=== PATIENT | female | born 2000 | race Two or more races ===

== ENCOUNTER 2023-08-01 12:58 | Outpatient (CLI) | payer OTHER | END 2023-08-01 14:07 | disposition home or self-care (01) | LOC: PRENATAL 12:58 | PROVIDERS: ATTEND Obstetrics & Gynecology Maternal & Fetal Medicine | DX: O35.3XX0 Maternal care for (suspected) damage to fetus from viral disease in mother, not applicable or unspecified (principal); O44.00 Complete placenta previa NOS or without hemorrhage, unspecified trimester; Z3A.20 20 weeks gestation of pregnancy ==

== ENCOUNTER 2023-10-23 09:00 | Outpatient (CLI) | payer OTHER | END 2023-10-23 09:01 | disposition home or self-care (01) | LOC: PRENATAL 09:00 | PROVIDERS: ATTEND Obstetrics & Gynecology Maternal & Fetal Medicine | DX: O26.849 Uterine size-date discrepancy, unspecified trimester (principal); O36.8199 Decreased fetal movements, unspecified trimester, other fetus; Z3A.32 32 weeks gestation of pregnancy ==

== ENCOUNTER 2023-11-28 17:05 | Inpatient (IN) | payer OTHER ==
[~2023-11-28] VITALS: Ht 157.5 cm; Wt 3.2 kg
[2023-11-28] MEDS ORDERED: PRENATAL TABLE1 EAC1 PO (17:56)
[2023-11-28 18:06] LABS: PH,URINE 7.5 (5.0-8.0); URINE APPEARANCE Clear; URINE BILIRRUBIN Negative (NEGATIVE); URINE BLOOD Negative; URINE COLOR Yellow; URINE GLUCOSE Negative (NEGATIVE); URINE LEUKOCYTE Trace; URINE NITRATE Negative; URINE PROTEIN Negative (NEGATIVE); URINE UROBILINOGEN 0.2 E.U./dl
[2023-11-28 18:10] LABS: HEMATOCRIT 35.1 % (36.0-45.00); MEAN CELL VOLUME 80.8 fL (80.00-100.00); MEAN CORPUSCULAR HEMOGLOBIN 27.6 pg (27.00-32.0); MEAN CORPUSCULAR HGB CONC 34.1 g/dl (32.0-36.0); PLATELET COUNT 257 K/uL (150-450); RED BLOOD COUNT 4.35 M/uL (4.00-6.00); URINE BACTERIA 3039.9 uL (0.0-1933); URINE EPITHELIAL CELLS 16.3 uL (0.0-38.8); URINE RBC 9.7 uL (0.0-20.8); URINE WBC 38.8 uL (0.0-23.2)
[2023-11-28 18:19] LABS: INR 0.98; PARTIAL THROMBOPLASTIN TIME 26.5 SECONDS (22.0-34.0); PROTHROMBIN TIME 10.3 SECONDS (9.0-11.5)
[2023-11-28 18:23] LABS: ALBUMIN 2.7 gm/dL (3.4-5.0); BILIRUBIN TOTAL 0.43 mg/dL (0.3-1.2); CALCIUM 8.5 mg/dL (8.5-10.1); CREATININE SERUM 0.48 mg/dL (0.55-1.02); GFR 158.89; GLOBULINA 3.5 G/DL (2.4-3.5); POTASSIUM 3.9 mEq/L (3.5-5.1); TOTAL PROTEIN 6.2 gm/dL (6.4-8.2)
[2023-11-28] MEDS ORDERED: MISOPROSTOL 25 MCG/4 ML GEL.W.APPL VAG ONE (19:00)
[2023-11-29] MEDS ORDERED: MISOPROSTOL 25 MCG TABLET VAG ONE (08:00)
[2023-11-29] MEDS ORDERED: MORPHINE SULFATE 4 MG/ML VIAL IV ONE (12:30)
[2023-11-29] MEDS ORDERED: OXYTOCIN 500 ML IV SCH (12:30)
[2023-11-29] MEDS ORDERED: MORPHINE SULFATE 4 MG/ML CARTRIDGE IV ONE (18:45)
[2023-11-29] MEDS ORDERED: CEFAZOLIN SODIUM 1,000 MG VIAL ONE (19:20)
[2023-11-29] MEDS ORDERED: OXYTOCIN 10 UNITS/ML VIAL ONE (19:27)
[2023-11-29] MEDS ORDERED: ERYTHROMYCIN BASE 3.5 GM OINT...G. OP ONE (19:27)
[2023-11-29] MEDS ORDERED: CEFAZOLIN SODIUM 1,000 MG VIAL IV ONE (19:30)
[2023-11-29] MEDS ORDERED: AZITHROMYCIN 500 MG VIAL IV ONE (19:30)
[2023-11-29] MEDS ORDERED: OXYTOCIN 10 UNITS/ML VIAL IV ONE (20:00)
[2023-11-29] MEDS ORDERED: ERYTHROMYCIN BASE 1 GM TUBE OP ONE (20:00)
[2023-11-29] MEDS ORDERED: OxyCODONE HCL/APAP UD (PERCOCET) PO PRN ×2 (20:45)
[2023-11-29] MEDS ORDERED: OXYTOCIN 1,000 ML IV SCH (20:45)
[2023-11-29] MEDS ORDERED: ERYTHROMYCIN BASE 1 GM TUBE OP SCH (20:45)
[2023-11-29] MEDS ORDERED: CHLORHEXIDINE GLUCONATE 120 ML BOTTLE TOP SCH (20:45)
[2023-11-29] MEDS ORDERED: RINGERS SOLUTION,LACTATED 1,000 ML IV SCH (20:45)
[2023-11-29] MEDS ORDERED: ONDANSETRON HCL 2 MG/ML VIAL ONE (22:17)
[2023-11-30] MEDS ORDERED: KETOROLAC TROMETHAMINE 15 MG VIAL IV SCH
[2023-11-30] MEDS ORDERED: ONDANSETRON HCL 2 MG/ML VIAL ONE (00:19)
[2023-11-30] MEDS ORDERED: KETOROLAC TROMETHAMINE 30 MG VIAL ONE (04:27)
[2023-11-30 06:48] LABS: HEMATOCRIT 34.8 % (36.0-45.00); HEMOGLOBIN 11.9 g/dL (12.0-15.00); MEAN CELL VOLUME 80.8 fL (80.00-100.00); MEAN CORPUSCULAR HEMOGLOBIN 27.6 pg (27.00-32.0); MEAN CORPUSCULAR HGB CONC 34.1 g/dl (32.0-36.0); PLATELET COUNT 245 K/uL (150-450); RED BLOOD COUNT 4.31 M/uL (4.00-6.00); RED CELL DISTRIBUTION WIDTH 22.8 % (11.5-14.5)
[2023-11-30] MEDS ORDERED: SIMETHICONE 125 MG CAPSULE PO SCH (09:00)
[2023-11-30] MEDS ORDERED: DOCUSATE SODIUM 100MG CAP PO SCH (09:00)
[2023-11-30] MEDS ORDERED: IBUprofen 800 MG TABLET PO SCH (09:00)
[2023-11-30] MEDS ORDERED: NAPROXEN 500 MG TABLET PO SCH (09:17)
[2023-11-30] MEDS ORDERED: ACETAMINOPHEN WITH CODEINE 1 UDTAB TABLET PO PRN (09:30)
[2023-12-01] MEDS ORDERED: FF) RHO(D) IMMUNE GLOBULIN (POM) IM ONE (10:45)
[2023-12-02] MEDS ORDERED: NAPR500T14 PO (08:49)
[2023-12-02] MEDS ORDERED: Tylenol #3 PO (08:49)
== END 2023-12-02 12:19 | disposition home or self-care (01) | DRG 807 ==
LOC: LDR 17:05 → OB/GYN 17:05 → LDR 17:24 → OB/GYN 11-29 16:10
PROVIDERS: Student in an Organized Health Care Education/Training Program; ADMIT Obstetrics & Gynecology; ATTEND Obstetrics & Gynecology
PROC: 4A1HXCZ Monitoring of Products of Conception, Cardiac Rate, External Approach (ICD-10-PCS; 2023-11-28)
PROC: 3E033VJ Introduction of Other Hormone into Peripheral Vein, Percutaneous Approach (ICD-10-PCS; 2023-11-29)
PROC: 3E0P7VZ Introduction of Hormone into Female Reproductive, Via Natural or Artificial Opening (ICD-10-PCS; 2023-11-29)
PROC: 10E0XZZ Delivery of Products of Conception, External Approach (ICD-10-PCS; principal; 2023-11-29 20:00)
DX: O77.8 Labor and delivery complicated by other evidence of fetal stress (principal); O40.3XX0 Polyhydramnios, third trimester, not applicable or unspecified; Z37.0 Single live birth; Z3A.37 37 weeks gestation of pregnancy